=== PATIENT | male | born 1990 | race Caucasian/White ===

== ENCOUNTER 2024-08-05 06:47 | Outpatient (CLI) | payer OTHER, SELFPAY | END 2024-08-05 06:48 | disposition home or self-care (01) | LOC: AMB 08-17 23:58 | PROVIDERS: PCP Emergency Medicine; Visit Provider Family Medicine | DX: S59.911A Unspecified injury of right forearm, initial encounter (principal); V43.53XA Car driver injured in collision with pick-up truck in traffic accident, initial encounter; Y92.488 Other paved roadways as the place of occurrence of the external cause | CPT/HCPCS: A0998 ==